=== PATIENT | female | born 1965 ===

== ENCOUNTER 2017-07-21 08:36 | Outpatient (CLI) | payer OTHER ==
--- NOTE | 2017-07-21 09:08 | RAD ---
LEFT KNEE 4 VIEWS: HISTORY: Left knee pain. FINDINGS: No fracture, dislocation, or bony destruction is identified. POS: [facility]
== END 2017-07-21 08:37 | disposition home or self-care (01) ==
LOC: RAD-FRANK 08:36
PROVIDERS: ATTEND Nurse Practitioner Family
DX: M25.562 Pain in left knee (principal); E66.9 Obesity, unspecified; I10 Essential (primary) hypertension